=== PATIENT | female | born 1990 | race Caucasian/White ===

== ENCOUNTER 2016-11-10 14:16 | Emergency (ER) | payer OTHER ==
[2016-11-10 14:27] VITALS: BP 110/64
--- NOTE | 2016-11-10 14:34 | UC ---
Throat Pain/Nasal Vineet HPI - HPI Summary HPI Summary: complaint of intermittent dental pain bottom right jaw difficult to chew food d/t pain tooth is sesitive to heat and cold has dentist and trying to get better insurance taking tyleno ith relief of tooth pain this morning woke up with pain in the right side of her tonsil- tried to gargle without relief denies fever and chills - History of Current Complaint Chief Complaint: UCDentalProblem Stated Complaint: SORE THROAT/DENTAL PAIN Time Seen by Provider: 11/10/16 14:20 Hx Obtained From: Patient Hx Last Menstrual Period: depo shot - Allergies/Home Medications Allergies/Adverse Reactions: Allergies Allergy/AdvReac Type Severity Reaction Status Date / Time Azithromycin Allergy See Comment Verified 11/10/16 14:27 Doxycycline Allergy Rash Verified 11/10/16 14:27 Sulfa Antibiotics AdvReac Nausea And Verified 11/10/16 14:27 Vomiting PMH/Surg Hx/FS Hx/Imm Hx Previously Healthy: Yes - seasonal allergies - Surgical History Surgical History: Yes Surgery Procedure, Year, and Place: kidney biopsy, cholectomy - Family History Known Family History: Negative: Cardiac Disease, Hypertension, Diabetes - Social History Occupation: Employed Full-time Lives: With Family Alcohol Use: None Substance Use Type: None Smoking Status (MU): Never Smoked Tobacco - Immunization History Most Recent Influenza Vaccination: none Most Recent Tetanus Shot: within 2 yrs Most Recent Pneumonia Vaccination: never Review of Systems Constitutional: Negative Skin: Negative Eyes: Negative ENT: Dental Pain, Sore Throat Respiratory: Negative Cardiovascular: Negative Gastrointestinal: Negative Genitourinary: Negative Motor: Negative Neurovascular: Negative Musculoskeletal: Negative Neurological: Negative Psychological: Negative All Other Systems Reviewed And Are Negative: Yes Physical Exam Triage Information Reviewed: Yes Appearance: No Pain Distress, Well-Nourished Vital Signs: Initial Vital Signs Temp 99.8 F 11/10/16 14:21 Pulse 80 11/10/16 14:21 Resp 14 11/10/16 14:21 BP 110/64 11/10/16 14:21 Pulse Ox 96 11/10/16 14:21 Vital Signs Reviewed: Yes Eyes: Positive: Conjunctiva Clear ENT: Positive: Pharyngeal erythema, TMs normal, Tonsillar swelling - right, Other: - right tonsil with stone. Negative: Nasal congestion, Nasal drainage Dental: Positive: Dental Fracture @ - 31,32, Abscess @ - 31,32 Neck: Positive: No Lymphadenopathy Respiratory: Positive: Lungs clear, Normal breath sounds, No respiratory distress, No accessory muscle use Cardiovascular: Positive: RRR, Pulses Normal Abdomen Description: Positive: Nontender, Soft Bowel Sounds: Positive: Present Musculoskeletal: Positive: No Edema Neurological: Positive: Alert Psychological Exam: Normal Skin Exam: Normal Throat Pain/Nasal Course/Dx - Course Course Of Treatment: exam completed. tonsil stone, tonsilitis and dental abscess. will treat with penicillin and followup with PCP and dentist, conrtinue NSAIDS for pain - Differential Dx/Diagnosis Differential Diagnosis/HQI/PQRI: Sinusitis, Tonsillitis Provider Diagnoses: tonsil stone, dental abscess Discharge - Discharge Plan Condition: Stable Disposition: HOME Prescriptions: Penicillin VK 500 MG TAB(NF) [Penicillin VK 500 mg Tab] 500 mg PO TID #30 tab Patient Education Materials: Tonsillitis (ED), Dental Abscess (ED) Referrals: Non Staff,Doctor [Primary Care Provider] - [facility]ERR[facility] [Outside] Additional Instructions: Please start antibiotic as directed Increase fluids and rest Take acetaminophen or ibuprofen for fever or pain please make appt with dental provider Please review your discharge instructions. If your symptoms do not improve please call your primary care provider or return to urgent care
== END 2016-11-10 14:54 | disposition home or self-care (01) ==
LOC: UCCORT 14:16
DX: J35.8 Other chronic diseases of tonsils and adenoids (principal); K04.7 Periapical abscess without sinus
CPT/HCPCS: 99212; G0463

== ENCOUNTER 2017-04-03 13:34 | Emergency (ER) | payer OTHER ==
[2017-04-03 13:57] VITALS: BP 107/65
--- NOTE | 2017-04-03 14:51 | UC ---
Throat Pain/Nasal Vineet HPI - HPI Summary HPI Summary: 26 yo female c/o last several days sore throat, not getting any better. No fever / chills. + sinus congestion. No rash. Minimal cough. No GI issues. Works around a lot of people, as such unsure if + sick contact. Does have hx of tonsil stones, but has not seen any lately. - History of Current Complaint Chief Complaint: UCGeneralIllness Stated Complaint: ST Time Seen by Provider: 04/03/17 14:01 Hx Obtained From: Patient, Family/Precipitation Equipment Tender Hx Last Menstrual Period: depo provera Pain Intensity: 7 Pain Scale Used: 0-10 Numeric - Allergies/Home Medications Allergies/Adverse Reactions: Allergies Allergy/AdvReac Type Severity Reaction Status Date / Time Azithromycin Allergy See Comment Verified 04/03/17 13:57 Doxycycline Allergy Rash Verified 04/03/17 13:57 Sulfa Antibiotics AdvReac Nausea And Verified 04/03/17 13:57 Vomiting PMH/Surg Hx/FS Hx/Imm Hx Previously Healthy: Yes - Surgical History Surgical History: Yes Surgery Procedure, Year, and Place: kidney biopsy, cholectomy - Family History Known Family History: Negative: Cardiac Disease, Hypertension, Diabetes - Social History Alcohol Use: None Substance Use Type: None Smoking Status (MU): Never Smoked Tobacco - Immunization History Most Recent Influenza Vaccination: none Most Recent Tetanus Shot: within 2 yrs Most Recent Pneumonia Vaccination: never Review of Systems Constitutional: Negative Skin: Negative Eyes: Negative ENT: Sore Throat, Nasal Discharge Respiratory: Negative Cardiovascular: Negative Gastrointestinal: Negative Genitourinary: Negative Motor: Negative Neurovascular: Negative Musculoskeletal: Negative Neurological: Negative Psychological: Negative Is Patient Immunocompromised?: No All Other Systems Reviewed And Are Negative: Yes Physical Exam Triage Information Reviewed: Yes Appearance: Well-Nourished - sitting up. conversing easily and appropriately. Vital Signs: Initial Vital Signs Temp 98.4 F 04/03/17 13:54 Pulse 71 04/03/17 13:54 Resp 18 04/03/17 13:54 BP 107/65 04/03/17 13:54 Pulse Ox 100 04/03/17 13:54 Vital Signs Reviewed: Yes Eye Exam: Normal - grossly normal ENT: Positive: Pharyngeal erythema, TM dull - tm's dull au, Tonsillar swelling - mild swelling, bilateral approx equal. no uvula deviation. no stridor. tongue not elevated. Neck exam: Normal Neck: Positive: Supple, Nontender, No Lymphadenopathy Respiratory Exam: Normal Respiratory: Positive: Chest non-tender, Lungs clear, Normal breath sounds, No respiratory distress, No accessory muscle use Cardiovascular Exam: Normal Cardiovascular: Positive: RRR, No Murmur, Pulses Normal, Brisk Capillary Refill Abdominal Exam: Normal Abdomen Description: Positive: Nontender Musculoskeletal Exam: Normal - moves all 4 ext's Neurological Exam: Normal - grossly nonfocal Psychological Exam: Normal - conversing easily and appropriately Skin Exam: Normal - no visible or reported rash Throat Pain/Nasal Course/Dx - Course Course Of Treatment: RST negative. Ms. Smith carefully considered, but respectfully declines monospot / ebv. Reviewed meds / allergies - she reports that pcn's have been fine. Aware that if indeed mono active, then potential rash could occur. She will f/u with PCP - [facility] [place]. Will consider ENT referral, will see PCP first. Declines work note. Questions as posed answered to the best of my ability. - Differential Dx/Diagnosis Provider Diagnoses: Tonsillitis Discharge - Discharge Plan Condition: Stable Disposition: HOME Prescriptions: Amoxicillin PO (*) [Amoxicillin 875 MG (*)] 875 mg PO BID #20 tab Fluconazole 150 MG (NF) [Diflucan 150 mg (NF)] 150 mg PO DAILY #2 tab Patient Education Materials: Tonsillitis (ED) Referrals: [facility] [place] [facility] [Outside] No Primary Care Phys,NOPCP [Primary Care Provider] - Additional Instructions: Follow up with a primary care physician as soon as you are able. Seek medical attention for worse or new problems. Consider mono test if you get a rash. Drink plenty of fluids.
== END 2017-04-03 14:42 | disposition home or self-care (01) ==
LOC: UCCORT 13:34
DX: J03.90 Acute tonsillitis, unspecified (principal); Z88.1 Allergy status to other antibiotic agents; Z88.2 Allergy status to sulfonamides
CPT/HCPCS: 87651; 99212; G0463

== ENCOUNTER → 2017-07-22 12:01 | Emergency (ER) | payer OTHER ==
--- OUTSIDE RECORDS SUMMARY | 2017-07-22 12:28 | XMS REPORT ---
:1990 External Reference #:[id number] Author Organization [facility] 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 Onset: 05/22/2017 Anxiety disorder JANNETH Baez Active Onset: 05/22/2017 Abnormal cervical Papanicolaou smear JANNETH Baez Active Note: LSIL with HPV effect Social History Type Date Description Comments Lives With Alone Diet Healthy, Well Balanced 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 times per day as needed Hydroxyzine HCL 05/22 Active Tablets 25mg 60tab take 1-2 F41.9 s tablets by Alonzo, mouth at M.D. bedtime as needed for insomnia Medroxyprogestero Active Suspension 150mg/ml q 3 Unknown ne / months, [facility] Fexofenadine HCL 05/22 Hx Tablets 180mg 30tab take one J30.9 s tablet by Alonzo, - mouth M.D. 07/20 every day for congestion Buspirone HCL 05/22 Hx Tablets 5mg 60tab 1-2 tabs F41.9 s by mouth Alonzo, - bid-tid M.D. 07/20 for anxiety as needed Vital Signs Date Vital Result Comment 07/20/2017 BP Systolic Sitting Right Arm 122 mmHg BP Diastolic Sitting Right Arm 72 mmHg Heart Rate 100 /min Respiratory Rate 20 /min Height 68 inches 5'8" Weight 190.00 lb BMI (Body Mass Index) 28.9 kg/m2 BSA (Body Surface Area) 2.00 m2 [place] body weight in kilograms 63 05/22/2017 BP Systolic Sitting Right Arm 118 mmHg BP Diastolic Sitting Right Arm 64 mmHg Heart Rate 96 /min Height 68 inches 5'8" Weight 189.00 lb BMI (Body Mass Index) 28.7 kg/m2 BSA (Body Surface Area) 2.00 m2 [place] body weight in kilograms 63 O2 % BldC Oximetry 98 % ra Results Test Date Test Result H/L Range Note Renal Function Panel 05/22/2017 Glucose 87 mg/dL 74-106 1 BUN 9 mg/dL 7-18 1 Creatinine 0.8 mg/dL 0.6-1.3 1 Glom Filtration Rate, Estimate >60 mL/min >60 1 If >60 mL/min >60 1, 2 BUN/Creat 11.2 ratio 1 Sodium 140 mmol/L 136-145 1 Potassium 4.7 mmol/L 3.5-5.1 1 Chloride 109 mmol/L High 98-107 1 Carbon Dioxide 26 mmol/L 21-32 1 Anion Gap 5 mEq/L Low 8-16 1 Calcium 8.9 mg/dL 8.5-10.1 1 Phosphorous 2.4 mg/dL Low 2.5-4.0 1 Albumin 3.8 g/dL 3.4-5.0 1 Laboratory test finding 05/22/2017 Thyroid Stim Hormone 1.50 uIU/mL 0.30- 4.20 1 CBS W/Automated Diff 05/22/2017 White Blood Count 5.2 K/uL 3.1-10.7 1 Red Blood Count 4.64 M/uL 3.90-5.40 1 Hemoglobin 13.5 gm/dL 11.6-15.8 1 Hematocrit 40.1 % 36.0-46.1 1 Mean Cell Volume 86.4 fl 80.9-99.0 1 Mean Corpuscular HGB 29.1 pg 25.9-32.7 1 Mean Corpuscular HGB Conc 33.7 g/dL 30.8-34.3 1 Platelet Count 242 K/uL 155-360 1 Red Cell Distri Width SD 39.5 fl 3-47 1 Red Cell Distri Width %CV 12.8 % 11.7-14.4 1 Mean Platelet Volume 11.2 fL 8.9-12.4 1 Neut% 49.7 % 40.4-72.8 1 Lymph % 35.5 % 20.0-42.0 1 [place] % 10.9 % 4.3-13.2 1 Eo% 3.3 % 0.0-6.6 1 Bas% 0.6 % 0.0-1.1 1 Neut# 2.59 K/uL 1.8-7.0 1 Lymph # 1.85 K/uL 1.0-4.0 1 [place] # 0.57 K/uL 0.3-0.9 1 Eos # 0.17 K/uL 0.0-0.5 1 Baso # 0.03 K/uL 0.0-0.1 1 Ua RFX Micro & Culture II 05/22/2017 Urine Color YELLOW Yellow 1 Urine Clarity CLEAR Clear 1 Urine Glucose - Dipstick NEGATIVE mg/dL Negative 1 Urine Bilirubin - Dipstick NEGATIVE Negative 1 Urine Ketone NEGATIVE mg/dL Negative 1 Urine Specific [place] 1.025 1.010-1.030 1 Urine Blood NEGATIVE Negative 1 Urine PH 6.0 Low 6.5-7.5 1 Urine Protein - Dipstick NEGATIVE mg/dL Negative 1 Urine Urobilinogen - Dipstick 0.2 E.U./dL 0.2-1.0 1 Urine Nitrite - Dipstick NEGATIVE Negative 1 Urine Leuk Esterase NEGATIVE Negative 1 Source: URINE, CLEAN CAT <SEE NOTE> 1, 3 1 Q87.81 R63.5 2 Note: Persistent reduction for 3 months or more in an eGFR <60 mL/min/1.73 m2 defines CKD. Patients with eGFR values >/=60 mL/min/1.73 m2 may also have CKD if evidence of persistent proteinuria is present. The original MDRD equation for estimated GFR is not valid for patients less than 18 years of age. Additional information may be found at www.kdoqi.org. 3 URINE, CLEAN CATCH Procedures Description No Information Encounters Type Date Location Provider CPT E/M Dx Office Visit 05/22/2017 10:45a Primary Care Office Lise Myers, [id number] Q87.81 [facility] F41.9 R63.5 J35.1 J30.9 Plan of Care Future Appointment(s):11/13/2017 1:00 pm - Educational Institution Curator at Primary Care [id number]/20 2:00 pm - Vangie Eddy MD at Primary Care Lxktib1307/20/2017 - Vangie Eddy MDQ87.81 Alport syndromeNew Labs:Basic Metabolic PanelUa RFX Micro &amp ; Culture IIProtein/Creatinine Ratio,UrineComments:-Biopsy shows thin basement membrane, but no immunostaining of type IV collagen or DNA testing per patient-& gt;will need to review records-Women with X-linked Alport syndrome are 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 Enciso and Dr. Tafoya non fasting blood work, urine 4 months follow up 4 months
[2017-07-22 15:05] VITALS: BP 0/0
== END | disposition left against medical advice (07) ==
LOC: ED 12:01
DX: M79.672 Pain in left foot (principal); Z53.20 Procedure and treatment not carried out because of patient's decision for unspecified reasons
CPT/HCPCS: 99281

== ENCOUNTER → 2018-07-14 18:43 | Emergency (ER) | payer OTHER ==
[~2018-07-14 18:43] MED LIST: HYDROcodone/ACETAMIN 5-325 MG* 1 TAB PO ONE
--- NOTE | 2018-07-14 21:17 | ED ---
Lower Extremity - HPI Summary HPI Summary: 28-year-old female presents for reevaluation of left great toe fracture. She states noticed more edema and bruising to the foot. She states the pain has increased. she has been ice and elevating. She cannot take ibuprofen. She tried to use tramadol for pain and it caused her to become sleepy. She has not follow-up with orthopedic yet but has appointment next week. She denies any new injury. - History of Current Complaint Chief Complaint: EDExtremityLower Stated Complaint: FOOT IS SWOLLEN, BROKE TWO TOES LAST WEEK PER PT Time Seen by Provider: 07/14/18 20:46 Hx Last Menstrual Period: depo provera Pain Intensity: 10 - Allergies/Home Medications Allergies/Adverse Reactions: Allergies Allergy/AdvReac Type Severity Reaction Status Date / Time azithromycin Allergy Nausea And Verified 07/14/18 18:54 Vomiting doxycycline Allergy Rash Verified 07/14/18 18:54 Sulfa (Sulfonamide Allergy Nausea And Verified 07/14/18 18:54 Antibiotics) Vomiting PMH/Surg Hx/FS Hx/Imm Hx Endocrine/Hematology History: Denies: Hx Anticoagulant Therapy Respiratory History: Reports: Hx Pneumonia Denies: Hx Asthma GI History: Comment Only: Other GI Disorders - cholecystectomy History: Reports: Other Problems/Disorders - alport syndrome Musculoskeletal History: Reports: Other Musculoskeletal History - rt knee tendon tear Sensory History: Reports: Hx Contacts or Glasses Opthamlomology History: Reports: Hx Contacts or Glasses Psychiatric History: Reports: Hx Anxiety, Hx Depression - Surgical History Surgery Procedure, Year, and Place: kidney biopsy, cholectomy Hx Anesthesia Reactions: No Infectious Disease History: No Infectious Disease History: Denies: Traveled Outside the [place] in Last 30 Days - Family History Known Family History: Negative: Cardiac Disease, Hypertension, Diabetes - Social History Alcohol Use: None Hx Substance Use: No Substance Use Type: Reports: None Hx Tobacco Use: No Smoking Status (MU): Never Smoked Tobacco Review of Systems Negative: Fever Negative: Chest Pain Negative: Shortness Of Breath Positive: Myalgia - left foot pain All Other Systems Reviewed And Are Negative: Yes Physical Exam Triage Information Reviewed: Yes Vital Signs On Initial Exam: Initial Vitals Temp Pulse Resp BP Pulse Ox 98.7 F 73 15 121/79 98 07/14/18 18:51 07/14/18 18:51 07/14/18 18:51 07/14/18 18:51 07/14/18 18:51 Vital Signs Reviewed: Yes Appearance: Positive: Well-Appearing Skin: Positive: Warm, Dry, Other - edema and erythema to big and second toe Head/Face: Positive: Normal Head/Face Inspection Eyes: Positive: Normal, Conjunctiva Clear ENT: Positive: Pharynx normal Respiratory/Lung Sounds: Positive: Clear to Auscultation, Breath Sounds Present Cardiovascular: Positive: Normal, RRR Musculoskeletal: Positive: Strength/ROM Intact - left foot with pain, Edema Left - 1 and 2nd toe left foot, Other - capillary refill<2 secs Neurological: Positive: Normal Psychiatric: Positive: Normal Diagnostics - Vital Signs Vital Signs Temp Pulse Resp BP Pulse Ox 07/14/18 18:51 98.7 F 73 15 121/79 98 - Laboratory Lab Statement: Any lab studies that have been ordered have been reviewed, and results considered in the medical decision making process. - Radiology foot Radiology Interpretation Completed By: ED Physician Summary of Radiographic Findings: healing fractures of distal phlanx first and possible 2nd toe phlanx fracture Lower Extremity Course/Dx - Course Course Of Treatment: 28-year-old female presents for reevaluation of left great toe fracture. She states noticed more edema and bruising to the foot. She states the pain has increased. she has been ice and elevating. She cannot take ibuprofen. She tried to use tramadol for pain and it caused her to become sleepy. She has not follow-up with orthopedic yet but has appointment next week. She denies any new injury. On exam has edema and ecchymosis to the great and second toe. neurovascular intact. X-ray shows healing fractures. Told to continue john taping and gave [place] for the pain. Told to follow-up with orthopedic. Patient understands agrees with plan. - Diagnoses Differential Diagnosis/HQI/PQRI: Positive: Fracture (Closed), Sprain, Strain Provider Diagnoses: Fracture of phalanx of left great toe Discharge - Sign-Out/Discharge Documenting (check all that apply): Patient Departure Patient Received Moderate/Deep Sedation with Procedure: No - Discharge Plan Condition: Good Disposition: HOME Prescriptions: HYDROcodone/ACETAMIN 5-325 MG* [[place] 5-325 TAB*] 1 tab PO Q8H PRN #12 tab MDD 3 PRN Reason: Pain Patient Education Materials: Toe Fracture (ED) Referrals: No Primary Care Phys,NOPCP [Primary Care Provider] - Additional Instructions: follow up with ortho ice, elevated, john tape Take norco every 8 hours as needed for pain Return to ED if develop any new or worsening symptoms - Billing Disposition and Condition Condition: GOOD Disposition: Home
[2018-07-14 21:41] VITALS: BP 111/58
== END | disposition home or self-care (01) ==
LOC: ED 18:43
DX: S92.402A Displaced unspecified fracture of left great toe, initial encounter for closed fracture (principal); M79.672 Pain in left foot; Z88.2 Allergy status to sulfonamides; X58.XXXA Exposure to other specified factors, initial encounter; Y92.9 Unspecified place or not applicable
CPT/HCPCS: 99282

== ENCOUNTER → 2018-11-25 13:28 | Emergency (ER) | payer OTHER ==
[2018-11-25 13:42] VITALS: BP 114/60
== END | disposition left against medical advice (07) ==
LOC: ED 13:28
DX: Z53.21 Procedure and treatment not carried out due to patient leaving prior to being seen by health care provider (principal)
CPT/HCPCS: 99281

== ENCOUNTER 2018-11-25 14:52 | Emergency (ER) | payer OTHER ==
[2018-11-25 15:38] VITALS: BP 113/68
--- NOTE | 2018-11-25 15:41 | UC ---
Abdominal Pain Female HPI - History of Current Complaint Chief Complaint: UCAbdominalPain Stated Complaint: LOWER L ABD PAIN Time Seen by Provider: 11/25/18 15:41 Hx Last Menstrual Period: depo shot Pain Intensity: 10 Allergies/Adverse Reactions: Allergies Allergy/AdvReac Type Severity Reaction Status Date / Time azithromycin Allergy Nausea And Verified 11/25/18 15:38 Vomiting doxycycline Allergy Rash Verified 11/25/18 15:38 Sulfa (Sulfonamide Allergy Nausea And Verified 11/25/18 15:38 Antibiotics) Vomiting Home Medications: Home Medications Acetaminophen [Tylophen] 1 tab PO ONCE PRN 11/25/18 [History Confirmed 11/25/18] PMH/Surg Hx/FS Hx/Imm Hx Other History Of: Negative For: Anticoagulant Therapy - Surgical History Surgical History: Yes Surgery Procedure, Year, and Place: kidney biopsy, cholectomy - Family History Known Family History: Negative: Cardiac Disease, Hypertension, Diabetes - Social History Alcohol Use: None Substance Use Type: None Smoking Status (MU): Never Smoked Tobacco - Immunization History Most Recent Influenza Vaccination: none Most Recent Tetanus Shot: within 2 yrs Most Recent Pneumonia Vaccination: never Physical Exam Vital Signs: Initial Vital Signs Temp 98.4 F 11/25/18 15:34 Pulse 51 11/25/18 15:34 Resp 18 11/25/18 15:34 BP 113/68 11/25/18 15:34 Pulse Ox 100 11/25/18 15:34 Discharge - Discharge Plan Referrals: No Primary Care Phys,NOPCP [Primary Care Provider] -
--- NOTE | 2018-11-25 16:46 | UC ---
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 She had gotten her depo shot three weeks ago. She is continuing to have pain. She had a pelvic exam yesterday at , and she is having increasing pain. afebrile. Pleasant 28 yo female c/o left lower abd / pelvic pain since yesterday. [facility], with [facility] cx and pelvic exam, felt pain immediately thereafter. no vag bleeding. LMP apprx 10 yrs ago (depo). No n/v/gi issues. No urinary sx. Pain does reflect to left flank, but not primary source thereof. No fever /chills. No hx pain like this. No sob / cp / cough. No rash. Left work early to be evaluated d/t intense pain. 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 Pshx - GBS lab years ago. - History of Current Complaint Chief Complaint: UCAbdominalPain Stated Complaint: LOWER L ABD PAIN Time Seen by Provider: 11/25/18 15:41 Hx Obtained From: Patient Hx Last Menstrual Period: depo shot Pain Intensity: 10 - Allergy/Home Medications Allergies/Adverse Reactions: Allergies Allergy/AdvReac Type Severity Reaction Status Date / Time azithromycin Allergy Nausea And Verified 11/25/18 15:38 Vomiting doxycycline Allergy Rash Verified 11/25/18 15:38 Sulfa (Sulfonamide Allergy Nausea And Verified 11/25/18 15:38 Antibiotics) Vomiting Home Medications: Home Medications Acetaminophen [Tylophen] 1 tab PO ONCE PRN 11/25/18 [History Confirmed 11/25/18] PMH/Surg Hx/FS Hx/Imm Hx Previously Healthy: Yes Other History Of: Negative For: Anticoagulant Therapy - Surgical History Surgical History: Yes Surgery Procedure, Year, and Place: kidney biopsy, cholectomy - Family History Known Family History: Negative: Cardiac Disease, Hypertension, Diabetes - Social History Alcohol Use: None Substance Use Type: None Smoking Status (MU): Never Smoked Tobacco - Immunization History Most Recent Influenza Vaccination: none Most Recent Tetanus Shot: within 2 yrs Most Recent Pneumonia Vaccination: never Review of Systems All Other Systems Reviewed And Are Negative: Yes Constitutional: Positive: Other - see hpi Skin: Positive: Negative Eyes: Positive: Negative ENT: Positive: Negative Respiratory: Positive: Negative Cardiovascular: Positive: Negative Gastrointestinal: Positive: Other - see hpi Genitourinary: Positive: Other - see hpi Motor: Positive: Negative Neurovascular: Positive: Negative Musculoskeletal: Positive: Negative Neurological: Positive: Negative Psychological: Positive: Negative Is Patient Immunocompromised?: No Physical Exam Triage Information Reviewed: Yes Appearance: Well-Nourished - sitting up, but prefers lying down. looks tired but nad. Vital Signs: Initial Vital Signs Temp 98.4 F 11/25/18 15:34 Pulse 51 11/25/18 15:34 Resp 18 11/25/18 15:34 BP 113/68 11/25/18 15:34 Pulse Ox 100 11/25/18 15:34 Vital Signs Reviewed: Yes Eye Exam: Normal ENT Exam: Normal Neck exam: Normal Respiratory Exam: Normal Respiratory: Positive: Chest non-tender, Lungs clear, Normal breath sounds, No respiratory distress, No accessory muscle use Cardiovascular Exam: Normal Cardiovascular: Positive: RRR, No Murmur, Pulses Normal, Brisk Capillary Refill Abdominal Exam: Other - normal ext female genitalia. Speculum exam not done ( done yesterday, no d/c, no cmt) Bimanual - + left pelvic and left low abd tender. Adnexa not particularly enlarged nor focal tenderness. No obdulia / guarding. No cvat, pain does radiate to some extent Musculoskeletal Exam: Normal - moves x 4 exts, gait slow, steady Neurological Exam: Normal - grossly nonfocal Psychological Exam: Normal - conversing easily and appropriately Skin Exam: Normal - no visible or reported rash. Nondiaphoretic. Course/Dx - Course Course Of Treatment: reviewed ucg / urine dip (see meditech) U/s pelvic ordered here. 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 + pain. 18:30 - pt sitting up but very uncomfortable. ] U/s radiology reading n/a at time of departure to ED. D/w Dr. Ram 18:47. Consider pelvic or extrapelvic (gi / gu / etc) etiology. Recommend further eval / tx in ED. Ms. Smith carefully considered this, and agrees to go to the ED. EMS offered, this too she carefully considered, but wishes to drive. Admonished to call 911 if problems and to avoid po. Questions as posed answered to the best of my ability. - Diagnoses Provider Diagnosis: Acute abdominal pain Discharge - Sign-Out/Discharge Documenting (check all that apply): Patient Departure All imaging exams completed and their final reports reviewed: No - Discharge Plan Condition: Guarded Disposition: HOME-RECOMMEND TO ED Patient Education Materials: Acute Abdominal Pain (ED) Referrals: No Primary Care Phys,NOPCP [Primary Care Provider] - Additional Instructions: Please go to the Emergency Department. Stop and call 911 if problems en route. Do not eat on the way. - Billing Disposition and Condition Condition: GUARDED Disposition: Home-Recommend to ED
--- NOTE | 2018-11-26 11:37 | UC ---
- Progress Note Progress Note: RADIOLOGY REPORT REVIEWED. ULTRASOUND SHOWS NO ACUTE PATHOLOGY. PATIENT WAS SENT TO THE ER FOR FURTHER EVALUATION. NO CHANGE IN MANAGEMENT. Course/Dx - Diagnoses Provider Diagnoses: Acute abdominal pain Discharge - Sign-Out/Discharge Documenting (check all that apply): Post-Discharge Follow Up All imaging exams completed and their final reports reviewed: Yes - Discharge Plan Condition: Guarded Disposition: HOME-RECOMMEND TO ED Patient Education Materials: Acute Abdominal Pain (ED) Referrals: No Primary Care Phys,NOPCP [Primary Care Provider] - Additional Instructions: Please go to the Emergency Department. Stop and call 911 if problems en route. Do not eat on the way. - Billing Disposition and Condition Condition: GUARDED Disposition: Home-Recommend to ED
== END 2018-11-25 18:40 | disposition home health service (06) ==
LOC: UCEAST 14:52
DX: R10.32 Left lower quadrant pain (principal); Z88.2 Allergy status to sulfonamides
CPT/HCPCS: 76830; 76856; 81002; 81025; 99212; G0463

== ENCOUNTER 2018-11-25 19:06 | Emergency (ER) | payer OTHER ==
[2018-11-25 20:16] LABS: ABS Basophils 0.1 10^3/ul (0-0.2); ABS Eosinophils 0.2 10^3/ul (0-0.6); ABS Lymphocytes 3.8 10^3/ul (1.0-4.8); ABS Monocytes 0.8 10^3/ul (0-0.8); ABS Neutrophils 6.3 10^3/ul (1.5-7.7); Eosinophil % 1.6 %; Hematocrit 40 % (35-47); Hemoglobin 13.6 g/dL (12.0-16.0); Lymphocyte % 34.1 %; Mean Corpuscular HGB Conc 34 g/dL (31-36); Mean Corpuscular Hemoglobin 28 pg (27-31); Mean Corpuscular Volume 84 fL (80-97); Mean Platelet Volume 9.2 fL (7.4-10.4); Nucleated Red Blood Cells % 0.2; Platelet Count 266 10^3/uL (150-450); Red Blood Count 4.81 10^6 /uL (3.70-4.87); Red Cell Distribution Width 14 % (10-15); White Blood Count 11.3 10^3/uL (3.5-10.8)
[2018-11-25 20:35] LABS: ALT 15 U/L (7-52); AST 15 U/L (13-39); Albumin 4.6 g/dL (3.2-5.2); Albumin/Globulin Ratio 1.4 (1-3); Alkaline Phosphatase 74 U/L (34-104); Anion Gap 7 mmol/L (2-11); BUN/Creatinine Ratio 7.3 (8-20); Blood Urea Nitrogen 7 mg/dL (6-24); C Reactive Protein 2.86 mg/L (<8.01); CO2 Carbon Dioxide 24 mmol/L (22-32); Calcium 9.9 mg/dL (8.6-10.3); Chloride 108 mmol/L (101-111); EGFR African American 83.7 (>60); EGFR Non-African American 69.2 (>60); Globulin 3.3 g/dL (2-4); Glucose 88 mg/dL (70-100); Potassium 3.6 mmol/L (3.5-5.0); Sodium 139 mmol/L (135-145); Total Protein 7.9 g/dL (6.4-8.9)
[2018-11-25 20:37] LABS: HCG Pregnancy < 0.60 mIU/mL
--- NOTE | 2018-11-25 23:24 | ED ---
Abdominal Pain/Female - HPI Summary HPI Summary: This pt is a 28 y/o [facility]o left lower abd pain since a couple of weeks ago, worsening since 5 days ago. Pt reports her pain described as pressure was tolerable at onset. She had just had a depo shot and thought she just had cramps the day of onset of her symptoms. About 5 days ago she began to have "excruciating pressure" that is constant and nonradiating on the left lower abd. She notes she has intermittent sharp pain and radiates to her left lower back. Today earlier she was nauseous. She notes she has been eating well and eating does not make her pain worse. Pt reports constipation for 2 days. She also states having urinary frequency. Pt went to Urgent Care today where she had an ultrasound that resulted negative and was referred to the ED. Pt has not had her period in 10 years as she in on the Depo shots. PMHx: Alport syndrome, cholecystectomy. Pt still has her appendix. - History of Current Complaint Chief Complaint: EDAbdPain Stated Complaint: ABD PAIN PER PT Hx Obtained From: Patient Hx Last Menstrual Period: depo shot Onset/Duration: Lasting Weeks, Still Present, Worse Since - 5 days ago Timing: Constant Severity Currently: Moderate Pain Intensity: 10 Pain Scale Used: 0-10 Numeric Location: Discrete At: LLQ Radiates: Yes Radiates to: Back Character: Other: - constant pressure and intermittent sharp pain Aggravating Factor(s): Nothing Alleviating Factor(s): Nothing Associated Signs and Symptoms: Positive: Nausea. Negative: Fever, Chest Pain, Vomiting Allergies/Adverse Reactions: Allergies Allergy/AdvReac Type Severity Reaction Status Date / Time azithromycin Allergy Nausea And Verified 11/25/18 19:43 Vomiting doxycycline Allergy Rash Verified 11/25/18 19:43 Sulfa (Sulfonamide Allergy Nausea And Verified 11/25/18 19:43 Antibiotics) Vomiting PMH/Surg Hx/FS Hx/Imm Hx Endocrine/Hematology History: Denies: Hx Anticoagulant Therapy Respiratory History: Reports: Hx Pneumonia Denies: Hx Asthma GI History: Comment Only: Other GI Disorders - cholecystectomy History: Reports: Other Problems/Disorders - alport syndrome Musculoskeletal History: Reports: Other Musculoskeletal History - rt knee tendon tear Sensory History: Reports: Hx Contacts or Glasses Opthamlomology History: Reports: Hx Contacts or Glasses Psychiatric History: Reports: Hx Anxiety, Hx Depression - Surgical History Surgical History: Yes Surgery Procedure, Year, and Place: kidney biopsy. cholecystectomy Hx Anesthesia Reactions: No Infectious Disease History: No Infectious Disease History: Denies: Traveled Outside the [place] in Last 30 Days - Family History Known Family History: Negative: Cardiac Disease, Hypertension, Diabetes - Social History Alcohol Use: None Hx Substance Use: No Substance Use Type: Reports: None Hx Tobacco Use: No Smoking Status (MU): Never Smoked Tobacco Review of Systems Negative: Fever, Chills Negative: Chest Pain Negative: Shortness Of Breath Gastrointestinal: Other - POSITIVE: constipation for 2 days Positive: Abdominal Pain, Nausea Positive: frequency All Other Systems Reviewed And Are Negative: Yes Physical Exam - Summary Physical Exam Summary: Appearance: Well-appearing, Well-nourished, lying in bed comfortably Skin: Warm, dry, no obvious rash Eyes: sclera anicteric, no conjunctival pallor ENT: mucous membranes moist, pharynx appears normal Neck: Supple, nontender Respiratory: Clear to auscultation, no signs of respiratory distress Cardiovascular: Normal S1, S2. No murmurs. Normal distal pulses in tibial and radial bilaterally. Abdomen: Soft, LLQ tenderness without peritoneal signs, normal active bowel sounds present Musculoskeletal: Normal, Strength/ROM Intact Neurological: A&Ox3, awake and alert, mentation is normal, speech is fluent and appropriate Psychiatric: affect is normal, does not appear anxious or depressed Triage Information Reviewed: Yes Vital Signs On Initial Exam: Initial Vitals Temp Pulse Resp BP Pulse Ox 97.6 F 50 16 135/79 100 11/25/18 19:38 11/25/18 19:38 11/25/18 19:38 11/25/18 19:38 11/25/18 19:38 Vital Signs Reviewed: Yes Diagnostics - Vital Signs Vital Signs Temp Pulse Resp BP Pulse Ox 11/25/18 21:55 98.5 F 54 16 130/69 97 11/25/18 19:38 97.6 F 50 16 135/79 100 - Laboratory Lab Results: Lab Results 11/25/18 11/25/18 Range/Units 19:56 19:56 WBC 11.3 H (3.5-10.8) 10^3/uL RBC 4.81 (3.70-4.87) 10^6 /uL Hgb 13.6 (12.0-16.0) g/dL Hct 40 (35-47) % MCV 84 (80-97) fL MCH 28 (27-31) pg MCHC 34 (31-36) g/dL RDW 14 (10-15) % Plt Count 266 (150-450) 10^3/uL MPV 9.2 (7.4-10.4) fL Neut % (Auto) 56.1 % Lymph % (Auto) 34.1 % Bowie % (Auto) 7.5 % Eos % (Auto) 1.6 % Baso % (Auto) 0.7 % Absolute Neuts (auto) 6.3 (1.5-7.7) 10^3/ul Absolute Lymphs (auto) 3.8 (1.0-4.8) 10^3/ul Absolute Monos (auto) 0.8 (0-0.8) 10^3/ul Absolute Eos (auto) 0.2 (0-0.6) 10^3/ul Absolute Basos (auto) 0.1 (0-0.2) 10^3/ul Absolute Nucleated RBC 0.0 10^3/ul Nucleated RBC % 0.2 Sodium 139 (135-145) mmol/L Potassium 3.6 (3.5-5.0) mmol/L Chloride 108 (101-111) mmol/L Carbon Dioxide 24 (22-32) mmol/L Anion Gap 7 (2-11) mmol/L BUN 7 (6-24) mg/dL Creatinine 0.96 H (0.51-0.95) mg/dL Est GFR ( Amer) 83.7 (>60) Est GFR (Non-Af Amer) 69.2 (>60) BUN/Creatinine Ratio 7.3 L (8-20) Glucose 88 (70-100) mg/dL Calcium 9.9 (8.6-10.3) mg/dL Total Bilirubin 0.50 (0.2-1.0) mg/dL AST 15 (13-39) U/L ALT 15 (7-52) U/L Alkaline Phosphatase 74 (34-104) U/L C-Reactive Protein 2.86 (<8.01) mg/L Total Protein 7.9 (6.4-8.9) g/dL Albumin 4.6 (3.2-5.2) g/dL Globulin 3.3 (2-4) g/dL Albumin/Globulin Ratio 1.4 (1-3) Lipase 12 (11.0-82.0) U/L Beta HCG, Quant < 0.60 mIU/mL Result Diagrams: 11/25/18 19:56 11/25/18 19:56 Lab Statement: Any lab studies that have been ordered have been reviewed, and results considered in the medical decision making process. - CT CT abdomen/pelvis CT Interpretation Completed By: Radiologist Summary of CT Findings: IMPRESSION: No acute CT pathology of the abdomen or pelvis. Dr. Dang has reviewed this report. Re-Evaluation - Re-Evaluation First Eval Re-Evaluation Time: 02:16 Comment: Discussed lab and CT results with the pt. Abdominal Pain Fem Course/Dx - Course Course Of Treatment: Pt is a 28 y/o female presenting to [facility] c/o left lower abd pain since a couple of weeks ago, worsening since 5 days ago. She notes some radiation to her left lower back. Pt is on Depo shots. Test results are unremarkable except for WBC of 11.3. Abdomen/pelvis CT shows no acute CT pathology of the abdomen or pelvis. In the ED course the pt was given morphine , toradol, zofran, compazine. Pt will be discharged home with follow up from her PCP. She was given a prescription for Zofran. - Diagnoses Provider Diagnoses: Abdominal pain Discharge - Sign-Out/Discharge Documenting (check all that apply): Patient Departure - Discharge home Patient Received Moderate/Deep Sedation with Procedure: No - Discharge Plan Condition: Good Disposition: HOME Prescriptions: Ondansetron ODT TAB* [Zofran 4 MG Odt TAB*] 8 mg PO Q6H PRN #12 tab.odt PRN Reason: Nausea Patient Education Materials: Acute Abdominal Pain (ED) Referrals: [facility] [Outside] - 3 Days Additional Instructions: Despite an extensive battery of tests to diagnose the cause of your pain, we do not have an answer; all the imaging studies appeared normal. For now, the best we can do is treat the symptoms. - Billing Disposition and Condition Condition: GOOD Disposition: Home - Attestation Statements Document Initiated by Scribe: Yes Documenting Scribe: Veronica Rivera Provider For Whom Scribe is Documenting (Include Credential): Fantasma Dang MD Scribe Attestation: I, Veronica Rivera, scribed for Fantasma Dang MD on 11/27/18 at 0608. Scribe Documentation Reviewed: Yes Provider Attestation: The documentation as recorded by the mireyaibVeronica carrera accurately reflects the service I personally performed and the decisions made by me, Fantasma Dang MD Status of Scribe Document: Viewed
[2018-11-25 23:55] LABS: Urine Appearance Cloudy; Urine Bacteria Absent (Absent); Urine Bilirubin Negative (Negative); Urine Blood Negative (Negative); Urine Color Straw; Urine Glucose Negative (Negative); Urine Ketones Negative (Negative); Urine Nitrite Negative (Negative); Urine Protein Negative (Negative); Urine Red Blood Cell Trace(0-2/hpf) (Absent); Urine Specific Gravity 1.005 (1.010-1.030); Urine Squamous Epithelial Cell Present (Absent); Urine Urobilinogen Negative (Negative); Urine White Blood Cell Trace(0-5/hpf) (Absent)
[2018-11-26] MEDS ORDERED: Iohexol 300* (CONTRAST) 10 ML SDV IV ONE (00:27)
[2018-11-26] MEDS ORDERED: Ketorolac INJ* 30 MG/ML 1 ML VIAL IV PUSH ONE (00:28)
[2018-11-26] MEDS ORDERED: Ondansetron INJ* 2 MG/ML VIAL IV ONE (00:28)
[2018-11-26] MEDS ORDERED: Morphine 4 MG/ML VIAL (1 ml) 4 MG/ML VIAL IV PRN (00:28)
[2018-11-26] MEDS ORDERED: Prochlorperazine TAB* 10 MG PO ONE (02:14)
[2018-11-26] MEDS ORDERED: PROCHLORPERAZINE INJ 5 MG/ML 2 ML VIAL IV ONE (02:18)
[2018-11-26] MEDS ORDERED: diPHENhydraMINE IV* 50 MG/ML 1 ml VIAL (BENADRYL) IV ONE (02:18)
[2018-11-26 04:09] VITALS: BP 115/59
[2018-11-26 13:56] LABS: Chlamydia trachomatis NAA Negative (Negative); Neisseria gonorrhoeae (GC) NAA Negative (Negative)
== END 2018-11-26 03:48 | disposition home or self-care (01) ==
LOC: ED 19:06
DX: R10.9 Unspecified abdominal pain (principal); Z88.1 Allergy status to other antibiotic agents; Z88.2 Allergy status to sulfonamides
CPT/HCPCS: 36415; 74177; 80053; 81003; 81015; 83690; 84702; 85025; 86140; 87086; 87491; 87591; 96374; 96375; 99283; J0780; J1200; J1885; J2270; J2405

== ENCOUNTER 2019-01-06 08:33 | Emergency (ER) | payer OTHER ==
[2019-01-06 08:43] VITALS: BP 124/76
--- NOTE | 2019-01-06 09:01 | UC ---
Throat Pain/Nasal Vineet HPI - HPI Summary HPI Summary: 28-year-old woman comes in with a chief complaint of a sore throat for about 5 days. Feels been having rhinorrhea for several months. The rhinorrhea is green colored. No recent fevers or chills. Throat hurts worse when she swallows. [id number] medications to help some with the symptoms. No complaint of chest congestion. - History of Current Complaint Chief Complaint: UCGeneralIllness Stated Complaint: SORE THROAT Time Seen by Provider: 01/06/19 08:46 Hx Last Menstrual Period: doesnt get d/t depo shot Pain Intensity: 8 - Allergies/Home Medications Allergies/Adverse Reactions: Allergies Allergy/AdvReac Type Severity Reaction Status Date / Time doxycycline Allergy Rash Verified 01/06/19 08:43 azithromycin AdvReac Nausea And Verified 01/06/19 08:43 Vomiting Sulfa (Sulfonamide AdvReac Nausea And Verified 01/06/19 08:43 Antibiotics) Vomiting PMH/Surg Hx/FS Hx/Imm Hx Previously Healthy: Yes Other History Of: Negative For: Anticoagulant Therapy - Surgical History Surgical History: Yes Surgery Procedure, Year, and Place: kidney biopsy. cholecystectomy - Family History Known Family History: Negative: Cardiac Disease, Hypertension, Diabetes - Social History Alcohol Use: None Substance Use Type: None Smoking Status (MU): Never Smoked Tobacco - Immunization History Most Recent Influenza Vaccination: none Most Recent Tetanus Shot: within 2 yrs Most Recent Pneumonia Vaccination: never Review of Systems All Other Systems Reviewed And Are Negative: Yes Constitutional: Positive: Negative Skin: Positive: Negative Eyes: Positive: Negative ENT: Positive: Sore Throat, Nasal Discharge, Sinus Congestion, Sinus Pain/ Tenderness Respiratory: Positive: Negative Cardiovascular: Positive: Negative Gastrointestinal: Positive: Negative Motor: Positive: Negative Neurovascular: Positive: Negative Musculoskeletal: Positive: Negative Neurological: Positive: Negative Psychological: Positive: Negative Is Patient Immunocompromised?: No Physical Exam Triage Information Reviewed: Yes Appearance: No Pain Distress, Well-Nourished Vital Signs: Initial Vital Signs Temp 98.9 F 01/06/19 08:38 Pulse 83 01/06/19 08:38 Resp 16 01/06/19 08:38 BP 124/76 01/06/19 08:38 Pulse Ox 98 01/06/19 08:38 Vital Signs Reviewed: Yes Eye Exam: Normal Eyes: Positive: Conjunctiva Clear ENT: Positive: Pharyngeal erythema, Nasal congestion, Nasal drainage, TMs normal , Tonsillar exudate, Uvula midline. Negative: Muffled voice, Hoarse voice Neck: Positive: Supple Respiratory: Positive: Lungs clear, Normal breath sounds, No respiratory distress Cardiovascular: Positive: RRR Musculoskeletal: Positive: Strength Intact, ROM Intact Neurological: Positive: Alert, Muscle Tone Normal Psychological: Positive: Age Appropriate Behavior Skin Exam: Normal Throat Pain/Nasal Course/Dx - Course Course Of Treatment: DISCUSSED VIRAL VERSES BACTERIAL INFECTION AND THE ROLE OF ANTIBIOTICS. THE PATIENT PREFERS TO BE ON ANTIBIOTICS AT THIS TIME. - Differential Dx/Diagnosis Provider Diagnosis: Sinusitis, Pharyngitis Discharge ED - Sign-Out/Discharge Documenting (check all that apply): Patient Departure All imaging exams completed and their final reports reviewed: No Studies - Discharge Plan Condition: Stable Disposition: HOME Prescriptions: Amoxicillin PO (*) [Amoxicillin 875 MG (*)] 875 mg PO BID #20 tab Patient Education Materials: Pharyngitis (ED), Sinusitis (ED) Referrals: [facility] [Outside] Additional Instructions: FOLLOW UP WITH YOUR DOCTOR IF NOT COMPLETELY IMPROVED. GET RECHECKED SOONER IF YOUR CONDITION WORSENS OR ANY QUESTIONS OR CONCERNS. - Billing Disposition and Condition Condition: STABLE Disposition: Home
== END 2019-01-06 09:29 | disposition home or self-care (01) ==
LOC: UCEAST 08:33
DX: J02.9 Acute pharyngitis, unspecified (principal); J32.9 Chronic sinusitis, unspecified; Z88.2 Allergy status to sulfonamides
CPT/HCPCS: 87651; 99212; G0463

== ENCOUNTER 2019-05-22 07:08 | Emergency (ER) | payer OTHER ==
[2019-05-22 07:17] VITALS: BP 133/79
[2019-05-22] MEDS ORDERED: Ondansetron ODT TAB* 4 MG PO ONE (07:32)
--- NOTE | 2019-05-22 07:35 | UC ---
FLU HPI - HPI Summary HPI Summary: 28-year-old woman comes in with a chief complaint of vomiting. Patient's had upper respiratory tract infection influenza-like symptoms for about 5 days. She 's got rhinorrhea that sometimes clear sometimes green postnasal drip cough. When she coughs a lot she ends up throwing up. Vomitings been the last 2 days. Also been having diarrhea last 2 days which is watery. Denies any abdominal pain. Has had chills. She has a sore throat. She has had body aches. Patient reports her vomiting occurs with coughing fits when she has excessive amounts of sputum. - History of Current Complaint Chief Complaint: UCGeneralIllness Stated Complaint: VOMITING Time Seen by Provider: 05/22/19 07:19 Hx Last Menstrual Period: doesnt get d/t depo shot Pain Intensity: 7 - Allergy/Home Medications Allergies/Adverse Reactions: Allergies Allergy/AdvReac Type Severity Reaction Status Date / Time amoxicillin Allergy Severe Vomiting Verified 05/22/19 07:18 doxycycline Allergy Rash Verified 05/22/19 07:18 azithromycin AdvReac Nausea And Verified 05/22/19 07:18 Vomiting Sulfa (Sulfonamide AdvReac Nausea And Verified 05/22/19 07:18 Antibiotics) Vomiting PMH/Surg Hx/FS Hx/Imm Hx Previously Healthy: Yes Other History Of: Negative For: Anticoagulant Therapy - Surgical History Surgical History: Yes Surgery Procedure, Year, and Place: kidney biopsy. cholecystectomy - Family History Known Family History: Negative: Cardiac Disease, Hypertension, Diabetes - Social History Alcohol Use: None Substance Use Type: None Smoking Status (MU): Never Smoked Tobacco - Immunization History Most Recent Influenza Vaccination: none Most Recent Tetanus Shot: within 2 yrs Most Recent Pneumonia Vaccination: never Review of Systems All Other Systems Reviewed And Are Negative: Yes Constitutional: Positive: Chills, Other - see hpi Skin: Positive: Negative Eyes: Positive: Negative ENT: Positive: Sore Throat, Nasal Discharge, Sinus Congestion Respiratory: Positive: Cough Cardiovascular: Positive: Negative Gastrointestinal: Positive: Vomiting, Diarrhea, Nausea Motor: Positive: Negative Neurovascular: Positive: Negative Musculoskeletal: Positive: Myalgia Neurological: Positive: Negative Psychological: Positive: Negative Is Patient Immunocompromised?: No Physical Exam Triage Information Reviewed: Yes Appearance: No Pain Distress, Well-Nourished, Ill-Appearing - mild Vital Signs: Initial Vital Signs Temp 98.4 F 05/22/19 07:11 Pulse 107 05/22/19 07:11 Resp 19 05/22/19 07:11 BP 133/79 05/22/19 07:11 Pulse Ox 97 05/22/19 07:11 Vital Signs Reviewed: Yes Eye Exam: Normal Eyes: Positive: Conjunctiva Clear ENT: Positive: Pharyngeal erythema, Nasal congestion, Nasal drainage, TMs normal Neck: Positive: Supple Respiratory: Positive: Lungs clear, Normal breath sounds, No respiratory distress Cardiovascular: Positive: RRR Musculoskeletal: Positive: Strength Intact, ROM Intact Neurological: Positive: Alert, Muscle Tone Normal Psychological: Positive: Normal Response To Family, Age Appropriate Behavior Skin Exam: Normal Flu Course/Dx - Course Course Of Treatment: DISCUSSED VIRAL VERSES BACTERIAL INFECTIONS AND THE ROLE OF ANTIBIOTICS. THE PATIENT PREFERS TO BE ON ANTIBIOTICS AT THIS TIME. - Differential Dx/Diagnosis Provider Diagnosis: Bronchitis, Sinusitis, Nausea & vomiting Discharge ED - Sign-Out/Discharge Documenting (check all that apply): Patient Departure All imaging exams completed and their final reports reviewed: No Studies - Discharge Plan Condition: Stable Disposition: HOME Prescriptions: Ondansetron ODT TAB* [Zofran 4 MG Odt TAB*] 4 mg PO Q6H PRN #10 tab.odt PRN Reason: Vomiting Penicillin VK 500 MG TAB(NF) [Penicillin VK 500 mg Tab] 500 mg PO QID #28 tab Patient Education Materials: Acute Bronchitis (ED), Sinusitis (ED), Acute Nausea and Vomiting (ED) Forms: *Work Release Referrals: [facility] [Outside] Additional Instructions: FOLLOW UP WITH YOUR DOCTOR IF NOT COMPLETELY IMPROVED. GET REEVALUATED SOONER IF NOT IMPROVED OR WORSE OR ANY QUESTIONS OR CONCERNS. - Billing Disposition and Condition Condition: STABLE Disposition: Home
[2019-05-22 07:40] LABS: Influenza A Molecular NEGATIVE (Negative); Influenza B Molecular NEGATIVE (Negative)
== END 2019-05-22 08:04 | disposition home or self-care (01) ==
LOC: UCEAST 07:08
DX: J32.9 Chronic sinusitis, unspecified (principal); J20.9 Acute bronchitis, unspecified; R11.2 Nausea with vomiting, unspecified; Z88.0 Allergy status to penicillin; Z88.1 Allergy status to other antibiotic agents; Z88.2 Allergy status to sulfonamides
CPT/HCPCS: 87651; 99212; A9270-GY; G0463